=== PATIENT | male | born 1955 | race Caucasian/White ===

== ENCOUNTER 2018-03-15 10:44 | Inpatient (IN) ==
--- NOTE | 2018-03-15 09:37 | Discharge Summary ---
Orders not resulted at time of discharge: Pending orders 03/15/18 08:18 XR hip complete LT [XR] Routine H/H [Hemoglobin and Hematocrit] [HEME] Routine 03/16/18 04:00 PT/INR [Prothrombin Time INR] [COAG] AM 0400 03/17/18 04:00 PT/INR [Prothrombin Time INR] [COAG] AM 0400 03/18/18 04:00 PT/INR [Prothrombin Time INR] [COAG] AM 0400 03/19/18 04:00 PT/INR [Prothrombin Time INR] [COAG] AM 0400 Date of Encounter: 03/18/18 Time of Encounter: 16:29 - Discharge Diagnosis (1) Status post total hip replacement, left Priority: Primary Status: Acute Comments: Opsite dressing, leave intact until first post-operative visit. If dressing becomes >50% saturated, contact office, remove dressing and place appropriate dressing in its place. Do not allow for dressing to get wet. Zipline/[place] in place, plan to remove at post-operative day #14-16. Total Joint Precautions x 6 weeks Apply cold therapy wrap 3-6x/day for 20 minutes at a time. Encourage ambulation throughout the day Use Incentive spirometer 10x/hour. Elevate affected extremity above heart as tolerated. Brace: Wear hip abductor brace at night x 6 weeks. (2) Arthritis of left hip Priority: Primary Status: Acute (3) Atrial fibrillation Priority: Secondary Status: Chronic Qualifiers: Atrial fibrillation type: chronic Qualified Code(s): I48.2 - Chronic atrial fibrillation (4) Chronic anticoagulation Priority: Secondary Status: Chronic Comments: On Coumadin chronically Lovenox/Coumadin bridge pre-operatively Lovenox/Coumadin bridge post-operatively, daily PT/INR until therapeutic 2-3. (5) COPD (chronic obstructive pulmonary disease) Priority: Secondary Status: Chronic Qualifiers: COPD type: chronic bronchitis Chronic bronchitis type: unspecified Qualified Code(s): J42 - Unspecified chronic bronchitis (6) Tobacco use Priority: Secondary Status: Chronic (7) NICM (nonischemic cardiomyopathy) Priority: Secondary Status: Chronic (8) ICD (implantable cardioverter-defibrillator) in place Priority: Secondary Status: Chronic (9) Sarcoidosis Priority: Secondary Status: Chronic - Hospital Course Hospital course: Mr. Boo is a 63 year old male, POD#3 - Left THR 03/16. Patient seen at bedside, without complaints. A&O x 3 03/16 - Cardio consulted for close follow up. No further recommendation. Afebrile, vital signs stable. Vital Signs Temp Pulse Resp BP Pulse Ox 03/18/18 10:11 98.1 F 93 16 104/56 96 03/18/18 10:10 87 96/65 96 03/18/18 07:54 95 03/18/18 06:29 98.5 F 84 16 98/67 93 03/18/18 04:14 98.6 F 91 14 93/64 92 03/17/18 23:37 98.8 F 56 15 104/67 92 03/17/18 19:47 16 92 03/17/18 19:06 99.5 F 100 14 100/66 92 Intake and Output 03/18/18 03/18/18 03/18/18 07:59 15:59 23:59 Intake Total 800 / 800 Output Total 275 / 275 650 / 650 Balance -275 / -275 150 / 150 Intake: Oral 800 / 800 Output: Urine 275 / 275 650 / 650 Other: Weight 58.5 kg Patient Weight 03/18/18 23:59 Weight 58.5 kg Labs reviewed. H/H - stable, asymptomatic Short CBC 03/18/18 Range/Units 07:09 Hgb 12.0 L (12.9-16.9) g/dL Hct 35.1 L (37.5-50.1) % BMP 03/18/18 Range/Units 07:09 Sodium 133 L (136-145) mEq/L Potassium 3.9 (3.5-5.1) mEq/L Chloride 100 (98-107) mEq/L Carbon Dioxide 26 (23-29) mEq/L BUN 11 (8-23) mg/dL Creatinine 0.55 L (0.70-1.30) mg/dL Glucose 92 (70-105) mg/dL Calcium 8.4 L (8.6-10.3) mg/dL PT/INR - order waiting* Pain control: adequate Participating in PT. All questions and concerns addressed. Educated on use of incentive spirometer. Encouraged ambulation and proper hydration. Patient educated on post-operative restrictions and post-operative care. Assessment and plan: Continue with postoperative care Discharge plan: ECF, today OK to start Coumadin* Daily PT/INR until therapeutic - Time Spent with Patient Total time spent providing and/or coordinating discharge services: - Discharge Medications Home Medications: Albuterol Sulfate [Albuterol Inhaler] 2 puff IH Q6H PRN 03/23/17 [History] Budesonide/Formoterol 160/4.5 [Symbicort 160/4.5] 2 puff IH BIDR 03/23/17 [History] Furosemide [Lasix] 40 mg PO DAILY 03/23/17 [History] Metoprolol Succinate 100 mg PO DAILY 03/23/17 [History] Warfarin [Coumadin] 2.5 mg PO SUTUWETHFRSA 03/23/17 [History] Docusate [Colace] 100 mg PO BID 10 Days #20 capsule 03/15/18 [Rx] Enoxaparin [Lovenox] 40 mg SQ Q12HR 7 Days #14 syr 03/15/18 [Rx] Ipratropium/Albuterol Neb [Duoneb] 3 ml IH Q6HR PRN 03/15/18 [History] Omeprazole [PriLOSEC] 20 mg PO DAILY 03/15/18 [History] OxyCODONE Immed Rel [Roxicodone 5 MG] 5 mg PO Q6HR PRN 7 Days #28 tablet 03/15/18 [Rx] Polyethylene Glycol 3350 [MiraLAX] 17 gm PO DAILY PRN 03/15/18 [History] Tiotropium [place] [Spiriva Respimat] 2 puff IH DAILY 03/15/18 [History] Ascorbic Acid [Vitamin C] 500 mg PO BIDWM tablet 03/18/18 [Rx] Ferrous Sulfate 325 mg PO BIDWM tablet 03/18/18 [Rx] Allergies/Adverse Reactions: Allergy/AdvReac Type Severity Reaction Status Date / Time No Known Allergies Allergy Verified 03/15/18 12:05 Date of admission: 03/15/18 Primary care physician: Caroline Klein Anticipated date of discharge: 03/18/18 - Patient Status Disposition: Transfer SNF Condition: Good Functional capacity at discharge: uses cane/walker Overall status at discharge: patient is progressing back to baseline - Discharge Instructions Follow Up With: Dolores Sawant, PAC [Physician Test And Turn Up Technician] - 03/25/18 10:15 Caroline Zamora, RN ONCOLOGY RESEARCH [Primary Care Provider] - Additional Instructions: Discharge Instructions: Total Hip Replacement Please call [facility] ([phone]), your Primary Care Physician, or report to the Emergency Room if you have any of the following symptoms: Nausea, vomiting, fever greater that 101.5, swelling, chest pain, shortness of breath, increased pain/redness/drainage/odor for your incision site, numbness/tingling, or any other concerning symptoms. ACTIVITY:Weight-bearing as tolerated for 8 weeks with hip dislocation precautions that physical therapy taught you. You may progress as tolerated under the guidance of your physical therapist. You do not need to sleep with a pillow between your legs. You can also seep on the operative side or on your stomach. Incentive Spirometer 10 times an hour. MEDICATIONS: Upon discharge resume your home medications. Take all the medications as prescribed. Take a stool softener if taking narcotic pain m edications. Stool softeners are only effective if you drink enough fluids. Drink 6-8 glass of water or fluids a day, unless this is not allowed for another health problem. Despite using stool softeners, if you haven't had a bowel movement in 3 days, please switch to a gentle laxative. Gentle laxatives are sold over the counter. You should have a bowel movement within 24 hours, if not call the office. You will be discharged from the hospital with a prescription for pain medication. You are encouraged to decrease the use of narcotic pain medication as tolerated. Should you require a refill, please call the office. [facility] prescribes narcotic pain medication for only 4-6 weeks after surgery. If you require pain medication beyond this time period, you may be referred to your Primary Care Physician or to the Pain Clinic for further evaluation. Plan ahead for refills on pain medication as many narcotics either need to be picked up at the office or mailed. It is best to call 48-72 hours in advance of needing a prescription refill so you don't run out of medication. To help control the post-operative pain, you may take NSAIDs (Aleve,Advil, Motrin, ibuprofen, naprosyn) or Tylenol as prescribed on the bottle in addition to the pain medication. ANTICOAGULATION (blood thinners): Continue your Aspirin, Lovenox or Coumadin as prescribed to help prevent a blood clot in the leg or in the lungs. As long as your incision remains dry and you tolerate the NSAIDs (Aleve, Advil, Motrin, Ibuprofen, Naprosyn), it is OK to use the NSAIDS while you are taking your anticoagulation medication. Should your incision start to drain, stop the NSAID and contact our office. Common symptoms of blood clot in the legs include: localized pain, swelling, calf tenderness, redness or discoloration of the skin. Blood clot in the lung symptoms include: shortness of breath, rapid pulse, sweating, and chest pain that worsens with deep breathing, coughing up blood, lightheadedness, feelings of anxiety. If you experience any of these symptoms notify your physician immediately, go to the emergency room, or if having trouble breathing, call 911. WOUND CARE: Leave the dressing on for 7 to 10days. You may change the dressing if it is saturated greater than 50%. Do not get the dressing wet at anytime. Wash your hands with antibacterial soap, rinse and dry prior to any wound care. If you have bryon the visiting nurse or rehab facility can remove the stapes 10-14 days after surgery and place steri-strips across the wound. Leave the steri-strips in place until they fall off on their own. You may let water from the shower run on top of the steri-strips. If you do not have a visiting nurse or rehab facility, you will need to return to the office at 10-14 days for the bryon to be removed. If you have itching or redness around the dressing call the office. FOLLOW-UP: Please follow up with your surgeon in the orthopedic clinic in 6 weeks from the day of surgery. If you have bryon that need to be removed, you will need to come back to the office in 10-14 days from the day of surgery.
[2018-03-15] MEDS ORDERED: Famotidine 20 MG/2 ML VIAL IVP ONE (11:08)
[2018-03-15] MEDS ORDERED: Acetaminophen IV 1,000 MG/100 ML INFUS..BTL IVPB ONE (11:08)
[2018-03-15] MEDS ORDERED: Pregabalin 75 MG CAPSULE PO ONE (11:08)
[2018-03-15] MEDS ORDERED: Ringers Solution, Lactated 1,000 ML IVC SCH ×2 (11:15→17:37)
[2018-03-15] MEDS ORDERED: *HR* Promethazine 25 MG/ML VIAL IVP PRN (11:21)
[2018-03-15] MEDS ORDERED: *HR* OxyCODONE Immed Rel 5 MG TABLET PO PRN (11:21)
[2018-03-15] MEDS ORDERED: *HR* Labetalol 20 MG/4 ML SYRINGE IVP PRN (11:21)
[2018-03-15] MEDS ORDERED: Albuterol 2.5 MG/3 ML NEBULIZER IH ONE (11:23)
[2018-03-15] MEDS ORDERED: CeFAZolin Syr 2,000MG/20 ML 2,000 MG/20 ML SYRINGE IVPB ONE (11:23)
--- NOTE | 2018-03-15 11:42 | History & Physical Report ---
Date of Encounter: 03/15/18 Time of Encounter: 11:41 24 Hour HP Update - Instructions Instructions: If the History and Physical is less than 30 days old and was completed prior to A.M. admission and or procedure and has NOT been updated on calendar day of procedure please complete this update prior to performing procedure. - Update Patient reports changes in Medical Condition: No Changes in examination, assessment, or condition: No Changes in Medication: No Preop tests/diagnostics Reviewed: Yes Surgery Remains Indicated: Yes Consent for Planned Operative Procedure(s) Verified: Yes - Pre-Operative Checklist Preoperative Checklist Indicated: No Prophylactic Antibiotic Ordered: Yes Is VTE Prophylaxis Indicated?: Yes
[2018-03-15] MEDS ORDERED: *HR* Propofol 200 MG/20 ML VIAL IVP ONE (13:28)
[2018-03-15] MEDS ORDERED: *HR* FentaNYL (PF) 100 MCG/2 ML VIAL ONE (13:28)
[2018-03-15] MEDS ORDERED: *HR* Midazolam HCl 2 MG/2 ML VIAL ONE (13:28)
--- NOTE | 2018-03-15 13:28 | Anesthesia Evaluation PreOp ---
Date of Encounter: 03/15/18 Time of Encounter: 13:25 - Past History Planned Operation: Left THR Cardiac History: Arrhythmia (AFib), Pacemaker/ICD (AICD EF 40%), Other (Non Ischemic Cardiomyopathy) Pulmonary History: Smoker, COPD, Other (Sarcoid) HEAD OF HISTORY History: Denies Any Significant HX Other Medical History: Denies Any Significant HX Anesthesia History: No Prior Anesthetic Complications Alcohol Use: none Drug use: none Medications and Allergies Albuterol Sulfate [Albuterol Inhaler] 2 puff IH Q6H PRN 03/23/17 [History] Budesonide/Formoterol 160/4.5 [Symbicort 160/4.5] 2 puff IH BIDR 03/23/17 [History] Furosemide [Lasix] 40 mg PO DAILY 03/23/17 [History] Metoprolol Succinate 100 mg PO DAILY 03/23/17 [History] Warfarin [Coumadin] 2.5 mg PO SUTUWETHFRSA 03/23/17 [History] Docusate [Colace] 100 mg PO BID 10 Days #20 capsule 03/15/18 [Rx] Enoxaparin [Lovenox] 40 mg SQ Q12HR 03/15/18 [History] Enoxaparin [Lovenox] 40 mg SQ Q12HR 7 Days #14 syr 03/15/18 [Rx] Ipratropium/Albuterol Neb [Duoneb] 3 ml IH Q6HR PRN 03/15/18 [History] Omeprazole [PriLOSEC] 20 mg PO DAILY 03/15/18 [History] OxyCODONE Immed Rel [Roxicodone 5 MG] 5 mg PO Q6HR PRN 7 Days #28 tablet 03/15/18 [Rx] Polyethylene Glycol 3350 [MiraLAX] 17 gm PO DAILY PRN 03/15/18 [History] Tiotropium [place] [Spiriva Respimat] 2 puff IH DAILY 03/15/18 [History] Allergy/AdvReac Type Severity Reaction Status Date / Time No Known Allergies Allergy Verified 03/15/18 12:05 - Meds/Allergy Pre-op Review Medications Reviewed: Yes Allergies Reviewed: Yes Beta Blockers on Current Med List: Yes (Metoprolol today 0730) Anesthesia Results - Labs Laboratory Tests 03/11/18 03/11/18 03/11/18 11:12 11:12 11:12 Hgb 15.9 Hct 46.4 Plt Count 134 L PT 23.1 H INR 2.0 APTT 39.0 H Sodium 137 Potassium 4.0 BUN 13 Creatinine 0.79 - Imaging EKG: report reviewed (SB) Additional studies: 2016 EF 45%, no pulm htn Anesthesia Exam O2 Sat Height 1.8 m Height 1.8 m Height 1.8 m Weight 54.885 kg Weight 54.885 kg Weight 54.885 kg O2 Sat by Pulse Oximetry 99 O2 Sat by Pulse Oximetry 99 Vital Signs Temp Pulse Resp BP Pulse Ox 97.6 F 60 18 106/70 99 03/15/18 11:15 03/15/18 11:15 03/15/18 11:15 03/15/18 11:15 03/15/18 11:15 Height: 5'11 Weight: 121 lbs NPO (# of Hours): 0800 today had cookies, coffee Pain Scale: 0 - HEENT Pupil (Motor): Pupils equal, EOMI Mallampati: II Teeth: Missing, Poor dentition Oral Opening: Greater than 3 - HEAD OF HISTORY LOC: Oriented HEAD OF HISTORY Motor: Normal RUE, Normal LUE, Normal RLE, Normal LLE, Normal Face HEAD OF HISTORY Sensory: Normal: RUE, LUE, RLE, LLE, Face - Cardiac Rhythm: Regular Murmur: None JVD: No Carotid Bruit: No - Pulmonary Breath Sounds: bilateral Clear Respiratory Effort: Symmetrical Anesthesia Assess/Plan ASA Score: 4 (HTN COPD Cardiomyopathy AICD) Level of consciousness: Cooperative, Oriented Anesthetic Plan: General Autologous Blood: No Monitoring Plan: Standard Monitors Recovery Plan: PACU (Discussed GA, agrees to proceed)
[2018-03-15] MEDS ORDERED: Dexamethasone 4 MG/ML VIAL ONE ×2 (13:36→15:26)
[2018-03-15] MEDS ORDERED: Lidocaine -MPF 4% 5 ML AMPUL ONE (13:36)
[2018-03-15] MEDS ORDERED: *HR* Succinylcholine 200 MG/10 ML VIAL IVP ONE (13:36)
[2018-03-15] MEDS ORDERED: Lidocaine -MPF 2% 2 ML VIAL ONE (13:36)
[2018-03-15] MEDS ORDERED: Ondansetron 4 MG/2 ML VIAL ONE (13:36)
[2018-03-15] MEDS ORDERED: Ethanol\\Acetic Acid\\Na Ace\\Ben 1,000 ML IRRIG.SOLN IR ONE (14:04)
[2018-03-15] MEDS ORDERED: *HR* Rocuronium Bromide 50 MG/5 ML VIAL ONE (14:14)
[2018-03-15] MEDS ORDERED: EPHEDrine 50 MG/ML VIAL ONE (15:09)
[2018-03-15] MEDS ORDERED: Tranexamic Acid 1,000 MG/10 ML VIAL ONE (15:21)
--- NOTE | 2018-03-15 16:02 | Orthopedic Operative Note ---
Date of procedure: 03/15/18 Pre-op diagnosis: Left hip arthritis Post-op diagnosis: same Procedure: Procedure: Left Total Hip Replacment robotic-assisted Estimated blood loss: 200 cc Hardware: Metal and polyethylene replacement. John DM Cup: 56 cup Femoral size 11 stem Head: 0 head with Roxy Procedural Notes: Grade 4 arthritic changes femoral head acetabular socket, procedure performed with robotic assistance. Operative leg 5 mm shorter than nonoperative leg is measured by preoperative CT scan Operative procedure: The patient was brought to the operating room and placed on the operating room table. After general anesthesia was administered the patient was placed in the lateral decubitus position with the operative leg up. All pressure points were padded appropriately and the head was stabilized in the neutral position. The operative extremity was prepped and draped in the sterile surgical fashion patient received IV antibiotic prior to skin incision. 3 Steinmann pins were placed in the iliac crest 3 cm proximal to the anterior superior iliac spine this was for the robotic-assisted sensor. This was done through a small 2 cm incision. A standard posterior approach is made to the operative hip, the incision was made through the skin and subcutaneous tissue hemostasis was obtained with Bovie cautery. Using careful sharp dissection the fascia was identified and incised exposing the external rotators. The greater trochanter was marked, and length was measured at this time utilizing robotic assistance. The external rotators were released off the greater trochanter and tagged with #2 FiberWire suture. The capsule was T'd open and the hip was brought into internal rotation. Patient noted to have grade 4 arthritic changes femoral head. The femoral neck cut was made at the appropriate level roughly 15 mm proximal to the lesser trochanter aced on preoperative templating. An anterior capsulotomy was performed for the anterior retractor. Soft tissues removed from the acetabulum. Patient noted to have grade 4 arthritic changes acetabulum. The acetabulum reference point was confirmed. The acetabulum was then mapped with robotic assistance. Based on the preoperative plan the acetabulum was reamed in one step with a 55 reamer. The 56 acetabulum was impacted with robotic assistance and 37 degrees of abduction and 21 degrees of anteversion. The hip was brought back in to internal rotation and prepared with the box worker followed by the canal finder followed by the reaming process to a size 11/12 broaching process in 20 degrees anteversion. It was broached up to the appropriate size 11 Trial reduction revealed leg lengths close to normal. The femoral implant was impacted in place in 20 degrees of anteversion. Trial reduction found the hip to be stable with 0 head and Roxy. The trials were removed and the real implants were impacted in place. The hip was reduced, patient had robotic confirmed leg length of 9 mm longer than the contralateral side. The hip had excellent stability with forward flexion to 90 degrees adduction of 30 degrees and internal rotation of 60 degrees. The hip had no shuck. The hip sat with an antibacterial solution. It was irrigated out with 2 L of pulse irrigation. The Steinmann pins were removed. The hip was closed by the PA. The deep tissue was irrigated and closed deep with #1 PDS suture superficially with 0 PDS suture and skin was closed with Dermabond and zip tie. The patient was placed in a sterile dressing and abduction pillow. The patient was extubated and transferred to the recovery room in stable condition. Anesthesia: KATHYA Surgeon: Ramon Orozco Was there an elementary assistant teacher present: No Estimated blood loss (cc): 200 Condition: stable Disposition: PACU
[2018-03-15] MEDS ORDERED: *HR* HYDROmorphone (PF) 1 MG/ML SYRINGE ONE (16:19)
[2018-03-15] MEDS: *HR* HYDROmorphone (PF) 1 MG/ML SYRINGE IVP PRN ×4 (16:43→17:03)
[2018-03-15 17:17] LABS: Hemoglobin 12.8 g/dL (12.9-16.9)
[2018-03-15] MEDS ORDERED: Ondansetron 4 MG/2 ML VIAL IVP PRN (17:37)
[2018-03-15] MEDS ORDERED: traMADol 50 MG TABLET PO PRN (17:37)
[2018-03-15] MEDS ORDERED: Naloxone 0.4 MG/ML INJ IVP PRN (17:37)
[2018-03-15] MEDS ORDERED: Temazepam 15 MG CAPSULE PO PRN (17:37)
[2018-03-15] MEDS ORDERED: Ipratropium/Albuterol Neb 3 ML IH PRN (17:37)
[2018-03-15] MEDS ORDERED: MOM Conc 10 ML UD.LIQ PO PRN (17:37)
[2018-03-15] MEDS ORDERED: Sennosides 8.6 MG TABLET PO PRN (17:37)
[2018-03-15] MEDS ORDERED: *HR* Enoxaparin 30 MG/0.3 ML SYRINGE SQ SCH (18:00)
--- NOTE | 2018-03-15 18:10 | Anesthesia Evaluation Post Op ---
Date of Encounter: 03/15/18 Time of Encounter: 18:00 - Vital Signs Vital Signs: Vital Signs/O2 Sat/Glucose, Most Current Temp Pulse Resp BP Pulse Ox 03/15/18 17:40 98.0 F 73 12 104/71 99 03/15/18 17:04 98.7 F 78 18 131/75 96 03/15/18 16:54 73 12 138/83 98 03/15/18 16:44 84 16 136/82 98 03/15/18 16:34 99.2 F 82 16 131/94 99 - Lungs Lungs: Clear Ascult./Percussion - Airway Airway: Non-obstructed - Cardiovascular Regular Rate - Mental Status Mental Status: Alert & Oriented, Answers Appropriately - Pain Pain Scale: 0 - Nausea Vomiting Nausea Vomiting: Not Present - Hydration Hydration: Ice chips - Discharge PostOp Status: Transfer Patient to floor
[2018-03-15] MEDS: *HR* Enoxaparin 30 MG/0.3 ML SYRINGE SQ SCH (18:22)
[2018-03-15] MEDS: Ascorbic Acid 500 MG TABLET PO SCH (18:22)
[2018-03-15 18:36] LABS: INR 1.1; Prothrombin Time 11.9 Seconds (9.4-12.1)
[2018-03-15] MEDS ORDERED: *HR* Warfarin 2.5 MG TABLET PO ONE (19:07)
[2018-03-15] MEDS: Budesonide/Formoterol 160/4.5 1 PUFF INH IH SCH (19:55)
[2018-03-15] MEDS: *HR* OxyCODONE/APAP 5/325 TABLET PO PRN (23:56)
[2018-03-16] MEDS: *HR* OxyCODONE/APAP 5/325 TABLET PO PRN (04:51)
--- NOTE | 2018-03-16 06:17 | Orthopedics Progress Note ---
Date of Encounter: 03/16/18 Time of Encounter: 06:16 Subjective Interval history: Patient was seen this morning doing well without complaints. Afebrile vital signs stable. Operative extremity: Neurovascularly intact Dressing clean dry and intact Calves nontender Assessment and plan: Continue with postoperative care Hematocrit 38 Objective Vital signs: Vital Signs Temp Pulse Resp BP Pulse Ox 03/16/18 05:14 97.5 F L 72 14 101/66 99 03/16/18 05:06 16 101/64 97 03/16/18 00:40 101/64 03/15/18 23:56 97.4 F L 68 16 105/58 97 03/15/18 21:11 97.7 F 100 14 113/76 99 03/15/18 20:19 97.6 F 82 16 114/83 97 03/15/18 19:56 16 97 03/15/18 19:24 97.4 F L 64 14 116/67 96 03/15/18 19:13 98.0 F 61 16 121/75 94 03/15/18 18:30 97.5 F L 64 16 141/77 96 03/15/18 18:16 16 98 03/15/18 17:40 98.0 F 73 12 104/71 99 03/15/18 17:04 98.7 F 78 18 131/75 96 03/15/18 16:54 73 12 138/83 98 03/15/18 16:44 84 16 136/82 98 03/15/18 16:34 99.2 F 82 16 131/94 99 03/15/18 11:50 18 106/70 99 03/15/18 11:15 97.6 F 60 18 106/70 99 Intake and Output 03/15/18 03/15/18 03/16/18 15:59 23:59 07:59 Intake Total 250 / 250 100 / 100 Output Total 100 / 100 425 / 425 Balance 150 / 150 -325 / -325 Intake: IV Fluids 100 / 100 Ancef 2,000 MG In 0.9 % Sodium 100 / 100 Chloride 100 ML @ 200 mls/hr IVPB Q8H [facility] Rx#:[id number] Oral 250 / 250 0 / 0 Output: Urine 0 / 0 425 / 425 Estimated Blood Loss 100 / 100 Other: # Voids 1 Weight 54.885 kg 56.36 kg Patient Weight 03/16/18 23:59 Weight 56.36 kg - Labs CBC & BMP: 03/15/18 16:57 Labs: Abnormal lab results Hgb 12.8 g/dL (12.9-16.9) L D 03/15/18 16:57 Consult Discharge Plan - Plan Referrals: Caroline Klein, MODE [Primary Care Provider] -
[2018-03-16] MEDS: *HR* Enoxaparin 30 MG/0.3 ML SYRINGE SQ SCH ×2 (06:23→17:16)
[2018-03-16 07:42] LABS: Prothrombin Time 10.9 Seconds (9.4-12.1)
[2018-03-16 07:43] LABS: Hematocrit 36.8 % (37.5-50.1); Hemoglobin 12.5 g/dL (12.9-16.9)
--- NOTE | 2018-03-16 07:48 | Event Note ---
Date of Encounter: 03/16/18 Time of Encounter: 07:46 PCR - POD#1 - Left THR 03/16. Patient seen at bedside, without complaints. A&O x 3 03/16 - Cardio consulted for close follow up. Afebrile, vital signs stable. Labs reviewed. H/H - stable, asymptomatic Pain control: adequate Participating in PT. All questions and concerns addressed. Educated on use of incentive spirometer. Encouraged ambulation and proper hydration. Patient educated on post-operative restrictions and post-operative care. Assessment and plan: Continue with postoperative care Discharge plan: ECF, once stable from cardiac standpoint. OK to start Coumadin* Short CBC 03/16/18 03/15/18 Range/Units 06:35 16:57 Hgb 12.5 L 12.8 L D (12.9-16.9) g/dL Hct 36.8 L 38.0 (37.5-50.1) % BMP 03/16/18 Range/Units 06:35 Sodium 139 (136-145) mEq/L Potassium 4.2 (3.5-5.1) mEq/L Chloride 105 (98-107) mEq/L Carbon Dioxide 26 (23-29) mEq/L BUN 13 (8-23) mg/dL Creatinine 0.56 L (0.70-1.30) mg/dL Glucose 129 H (70-105) mg/dL Calcium 8.4 L (8.6-10.3) mg/dL Vital Signs Temp Pulse Resp BP Pulse Ox 03/16/18 09:55 98.1 F 83 16 107/64 96 03/16/18 06:29 97.8 F 76 16 104/68 98 03/16/18 05:14 97.5 F L 72 14 101/66 99 03/16/18 05:06 16 101/64 97 03/16/18 00:40 101/64 03/15/18 23:56 97.4 F L 68 16 105/58 97 03/15/18 21:11 97.7 F 100 14 113/76 99 03/15/18 20:19 97.6 F 82 16 114/83 97 03/15/18 19:56 16 97 03/15/18 19:24 97.4 F L 64 14 116/67 96 03/15/18 19:13 98.0 F 61 16 121/75 94 03/15/18 18:30 97.5 F L 64 16 141/77 96 03/15/18 18:16 16 98 03/15/18 17:40 98.0 F 73 12 104/71 99 03/15/18 17:04 98.7 F 78 18 131/75 96 03/15/18 16:54 73 12 138/83 98 03/15/18 16:44 84 16 136/82 98 03/15/18 16:34 99.2 F 82 16 131/94 99 Intake and Output 03/15/18 03/16/18 03/16/18 23:59 07:59 15:59 Intake Total 250 / 250 100 / 100 Output Total 100 / 100 425 / 425 Balance 150 / 150 -325 / -325 Intake: IV Fluids 100 / 100 Ancef 2,000 MG In 0.9 % Sodium 100 / 100 Chloride 100 ML @ 200 mls/hr IVPB Q8H [facility] Rx#:[id number] Oral 250 / 250 0 / 0 Output: Urine 0 / 0 425 / 425 Estimated Blood Loss 100 / 100 Other: # Voids 1 Weight 56.36 kg Patient Weight 03/16/18 23:59 Weight 56.36 kg
[2018-03-16] MEDS: TIOTROPIUM BROMIDE IH SCH (08:04)
[2018-03-16] MEDS: Budesonide/Formoterol 160/4.5 1 PUFF INH IH SCH ×2 (08:04→20:18)
[2018-03-16 09:25] LABS: BUN/Creatinine Ratio 23 (6-26); Blood Urea Nitrogen 13 mg/dL (8-23); Calcium 8.4 mg/dL (8.6-10.3); Carbon Dioxide 26 mEq/L (23-29); Chloride 105 mEq/L (98-107); Glucose 129 mg/dL (70-105); Osmolality,Calculated 290 (280-300); Potassium 4.2 mEq/L (3.5-5.1); Sodium 139 mEq/L (136-145); eGFR For Non-African Americans > 60 (> 60)
[2018-03-16] MEDS: Multivit/Ca/Min/Fe/FA 1 TAB TABLET PO SCH (10:14)
[2018-03-16] MEDS: Furosemide 40 MG TABLET PO SCH (10:14)
[2018-03-16] MEDS: Ascorbic Acid 500 MG TABLET PO SCH ×2 (10:14→17:15)
[2018-03-16] MEDS: Metoprolol XL (24 HR) Succ 50 MG TAB.ER.24H PO SCH (10:14)
--- NOTE | 2018-03-16 11:43 | Cardiology Consult Note ---
<Adelfo Davison - Last Filed: 03/17/18 08:15> Date of Encounter: 03/17/18 Time of Encounter: 10:30 Assessment and Plan (1) NSVT (nonsustained ventricular tachycardia) Current Visit: Yes Status: Acute Slow Vt seen. HR 90. Pt has ICD for NICMP. WIll repeat TTE and check Mg. K is 4.2. (2) Atrial fibrillation Current Visit: No Status: Chronic H/o PAF. Currently NSR. Small runs PAF seen at times on telemetry. Overall he is rate controlled. Reported to have NSVT by RN on floor. Telemetry reviewed with Dr. Gamboa. Possible slow VT seen. Continue bb. On coumadin therapy and currently bridged by coumadin clinic. Will have pharmacy to dose coumadin therapy if ok to start from orthopaedic standpoint. Qualifiers: Atrial fibrillation type: chronic Qualified Code(s): I48.2 - Chronic atrial fibrillation (3) NICM (nonischemic cardiomyopathy) Current Visit: No Status: Chronic H/o NICM s/p PPM. States LHC at OSH 5 years was normal. TTE 2017 showed EF LVEF 45-50%. He is currently euvolemic. Continue bb. Continue maintenance lasix. Low sodium diet. (4) ICD (implantable cardioverter-defibrillator) in place Current Visit: No Status: Chronic Discussion w patient/family: The assessment and plan as outlined above was discussed with the patient and/or family members who expressed understanding and agreement. All questions were answered. Thank you for involving us in the care of your patient. Please call with any questions. History of Present Illness Consult date: 03/16/18 Requesting physician: Dolores Sawant Consult reason: Post op management, afib, ICD, on coumadin Chief complaint: Knee pain. History of present illness: Mr. Boo is a 63 year old male with past medical history of NICMP, ICD, and atrial fibrillation on coumadin. Pt presented for elective robotic hip replacement with Dr. Orozco. There was no complication from his procedure. Cardiology consulted for post-op management. He is followed by the [facility] anticoagulation clinic for his coumadin. He is currently NSR with intermittent periods of rate controlled afib. He denies SOB, orthopnea, PND, or edema. C/o chest congestion and occasional palpitations. Last night he was reported to have NSVT on telemetry.He states that he was shocked 6 times in the past by his defibrillator but no recent shocks. His last device check in [facility] showed no events. Prior cardiac testing: ICD interrogation 11/2017-Remote monitoring of the device shows that all measurements are appropriate. NO events. Patient is scheduled for follow up in 3 months, 02/21. Battery Longevity 8.11 Years. TTE 02/04/17- LVEF 45-50%. Low normal to mildly reduced LV systolic function. Not all wall segments were well visualized. Normal right ventricular structure and function. Elongated and mildly prolapsing anterior mitral valve leaflet associated with trace mitral regurgitation. No pulmonary hypertension. Past Med Surg Social Fam HX - Past Medical History Medical history: atrial fibrillation, cardiomyopathy, CHF, COPD, coronary artery disease, GERD Additional medical history: emphyzema, sarcoidosis, Psychiatric history: no psych history - Past Surgical History Surgical History: orthopedic, other, pacemaker/AICD, sinus surgery Additional surgical history: left heart cath, NEREYDA thrombus, lung bxs, - Social History Smoking Status: Current every day smoker Packs per day: 1-1.5 Smokeless Tobacco Status: No Alcohol use: none Drug use: none - Family History Mother Hx Family Cardiac Disorders: Yes Medications and Allergies Albuterol Sulfate [Albuterol Inhaler] 2 puff IH Q6H PRN 03/23/17 [History] Budesonide/Formoterol 160/4.5 [Symbicort 160/4.5] 2 puff IH BIDR 03/23/17 [History] Furosemide [Lasix] 40 mg PO DAILY 03/23/17 [History] RX: Metoprolol Succinate 100 mg PO DAILY 03/23/17 [History] Warfarin [Coumadin] 2.5 mg PO SUTUWETHFRSA 03/23/17 [History] Docusate [Colace] 100 mg PO BID 10 Days #20 capsule 03/15/18 [Rx] Enoxaparin [Lovenox] 40 mg SQ Q12HR 03/15/18 [History] Enoxaparin [Lovenox] 40 mg SQ Q12HR 7 Days #14 syr 03/15/18 [Rx] Ipratropium/Albuterol Neb [Duoneb] 3 ml IH Q6HR PRN 03/15/18 [History] Omeprazole [PriLOSEC] 20 mg PO DAILY 03/15/18 [History] RX: OxyCODONE Immed Rel [Roxicodone 5 MG] 5 mg PO Q6HR PRN 7 Days #28 tablet 03/15/18 [Rx] RX: Polyethylene Glycol 3350 [MiraLAX] 17 gm PO DAILY PRN 03/15/18 [History] Tiotropium [place] [Spiriva Respimat] 2 puff IH DAILY 03/15/18 [History] Allergy/AdvReac Type Severity Reaction Status Date / Time No Known Allergies Allergy Verified 03/15/18 12:05 All Systems Review: The remainder of the systems were reviewed and are negative Physical Examination Vital Signs, Last 4 Hours Temp Pulse Resp BP Pulse Ox 03/16/18 09:55 98.1 F 83 16 107/64 96 General: Conversant, No Apparent Distress HEENT: Atraumatic, Normocephaly, Mucus Membranes Moist Neck: No JVD, Normal carotid pulses Cardiac: Reg Rate and Rhythm, Normal S1 and S2, No Murmur, Other (Device KAYLIE) Lungs: Normal Breath Sounds, No Wheeze, Rales, Rhonchi Neuro: Alert and responsive, No focal deficits noted Abdomen: Soft, Non-Tender Skin: No rashes noted on visualized skin Musculoskeletal: No Chest Wall Tenderness Extremities: No Clubbing, No Cyanosis, No Edema, Normal Pulses Results 03/17/18 06:05 03/17/18 06:05 Lab Results 03/15/18 03/15/18 03/16/18 16:57 18:17 06:35 Hgb 12.8 L D 12.5 L Hct 38.0 36.8 L INR 1.1 Sodium Potassium Chloride Carbon Dioxide BUN Creatinine Glucose Calcium 03/16/18 03/16/18 06:35 06:36 Hgb Hct INR 1.0 Sodium 139 Potassium 4.2 Chloride 105 Carbon Dioxide 26 BUN 13 Creatinine 0.56 L Glucose 129 H Calcium 8.4 L - Imaging and Cardiology Echo: report reviewed - EKG Interpretation EKG results cardiology: personally reviewed Consult Discharge Plan - Plan Referrals: Caroline Klein CNP [Primary Care Provider] - <Macey Gamboa - Last Filed: 03/17/18 19:03> Date of Encounter: 03/17/18 - Attending Attestation I examined this patient and my medical decision-making was reviewed with the IMAGING TECH. I agree with the documented findings, disposition and treatment plan as described. Assessment and Plan Discussion w patient/family: The assessment and plan as outlined above was discussed with the patient and/or family members who expressed understanding and agreement. All questions were answered. Thank you for involving us in the care of your patient. Please call with any questions. History of Present Illness History of present illness: Mr. Boo is a 63 year old male All Systems Review: The remainder of the systems were reviewed and are negative Physical Examination Vital Signs, Last 4 Hours Temp Pulse Resp BP Pulse Ox 03/17/18 15:49 98.6 F 99 16 102/64 96 Results 03/17/18 06:05 03/17/18 06:05 Lab Results 03/17/18 03/17/18 03/17/18 06:05 06:05 06:05 Hgb 11.2 L Hct 32.6 L INR 1.3 Sodium 138 Potassium 4.1 Chloride 105 Carbon Dioxide 29 BUN 13 Creatinine 0.70 Glucose 102 Calcium 8.5 L
--- NOTE | 2018-03-16 12:45 | Physician Discharge Referral ---
ExtendedCare Referral Info Transfer To: ON LICENSE OF [facility] Provider in Charge: Provider in Charge after Transfer: PCP Institutional Level of Care: Skilled - Diagnosis (1) Status post total hip replacement, left Priority: Primary Status: Acute (2) Arthritis of left hip Priority: Primary Status: Acute (3) Atrial fibrillation Priority: Secondary Status: Chronic (4) Chronic anticoagulation Priority: Secondary Status: Chronic (5) COPD (chronic obstructive pulmonary disease) Priority: Secondary Status: Chronic (6) Tobacco use Priority: Secondary Status: Chronic (7) NICM (nonischemic cardiomyopathy) Priority: Secondary Status: Chronic (8) ICD (implantable cardioverter-defibrillator) in place Priority: Secondary Status: Chronic (9) Sarcoidosis Status: Chronic Expected Duration of Placement: < 30 days Prognosis: Good Aware of Diagnosis: Patient Aware of Prognosis: Patient - Transfer Medications Home Medications: Albuterol Sulfate [Albuterol Inhaler] 2 puff IH Q6H PRN 03/23/17 [History] Budesonide/Formoterol 160/4.5 [Symbicort 160/4.5] 2 puff IH BIDR 03/23/17 [History] Furosemide [Lasix] 40 mg PO DAILY 03/23/17 [History] Metoprolol Succinate 100 mg PO DAILY 03/23/17 [History] Warfarin [Coumadin] 2.5 mg PO SUTUWETHFRSA 03/23/17 [History] Docusate [Colace] 100 mg PO BID 10 Days #20 capsule 03/15/18 [Rx] Enoxaparin [Lovenox] 40 mg SQ Q12HR 7 Days #14 syr 03/15/18 [Rx] Ipratropium/Albuterol Neb [Duoneb] 3 ml IH Q6HR PRN 03/15/18 [History] Omeprazole [PriLOSEC] 20 mg PO DAILY 03/15/18 [History] OxyCODONE Immed Rel [Roxicodone 5 MG] 5 mg PO Q6HR PRN 7 Days #28 tablet 03/15/18 [Rx] Polyethylene Glycol 3350 [MiraLAX] 17 gm PO DAILY PRN 03/15/18 [History] Tiotropium [place] [Spiriva Respimat] 2 puff IH DAILY 03/15/18 [History] Ascorbic Acid [Vitamin C] 500 mg PO BIDWM tablet 03/18/18 [Rx] Ferrous Sulfate 325 mg PO BIDWM tablet 03/18/18 [Rx] Allergies/Adverse Reactions: Allergy/AdvReac Type Severity Reaction Status Date / Time No Known Allergies Allergy Verified 03/15/18 12:05 - Respiratory Orders None Smoking Cessation: Smoking cessation has been advised. For more information, call the [place] Tobacco Quit Line at 1-191-CTUS-NOW. - Lab Orders Lab Orders: CBC, Other (include drug levels w/frequency) (PT/INR until therapeutic with Coumadin [place]) - Advance Directives Code Status: Full Code - Mobility Orders Chair - Rehabiliation Orders Rehab Potential: Good Rehab Orders: ROM Exercises, Evaluation for Physical Therapy, Evaluation for Occupational Therapy - Treatments Skin tear care topically daily PRN per policy, May check for fecal impaction rectally daily PRN, Fleet enema rectally every other day PRN cleansing purposes List/Other: Opsite dressing, leave intact until first post-operative visit. If dressing becomes >50% saturated, contact office, remove dressing and place appropriate dressing in its place. Do not allow for dressing to get wet. Zipline/[place] in place, plan to remove at post-operative day #14-16. Total Joint Precautions x 6 weeks Apply cold therapy wrap 3-6x/day for 20 minutes at a time. Encourage ambulation throughout the day Use Incentive spirometer 10x/hour. Elevate affected extremity above heart as tolerated. Brace: Wear hip abductor brace at night x 6 weeks. - Diet Orders Cardiac CERTIFICATION: I certify that the transfer of the above named patient to an Extended Care Facility is necessary for the continuing treatment of the diagnosis listed. The above information is true and accurate reflection of patient's current condition. Confidential - Redisclosure prohibited without a patient's written consent.
[2018-03-16] MEDS ORDERED: Ibuprofen 600 MG TABLET PO ONE (13:19)
[2018-03-16] MEDS ORDERED: Warfarin perPT PO SCH (14:00)
[2018-03-16] MEDS: *HR* Warfarin 2.5 MG TABLET PO SCH (17:16)
[2018-03-16] MEDS: *HR* OxyCODONE Immed Rel 5 MG TABLET PO PRN (21:30)
[2018-03-17] MEDS: *HR* OxyCODONE Immed Rel 5 MG TABLET PO PRN ×2 (04:11→17:32)
[2018-03-17] MEDS: *HR* Enoxaparin 30 MG/0.3 ML SYRINGE SQ SCH ×2 (05:19→17:33)
[2018-03-17 07:02] LABS: Hematocrit 32.6 % (37.5-50.1); Hemoglobin 11.2 g/dL (12.9-16.9)
[2018-03-17 07:10] LABS: INR 1.3; Prothrombin Time 14.5 Seconds (9.4-12.1)
[2018-03-17 07:13] LABS: BUN/Creatinine Ratio 19 (6-26); Blood Urea Nitrogen 13 mg/dL (8-23); Calcium 8.5 mg/dL (8.6-10.3); Carbon Dioxide 29 mEq/L (23-29); Chloride 105 mEq/L (98-107); Glucose 102 mg/dL (70-105); Osmolality,Calculated 286 (280-300); Potassium 4.1 mEq/L (3.5-5.1); Sodium 138 mEq/L (136-145); eGFR For Non-African Americans > 60 (> 60)
--- NOTE | 2018-03-17 08:05 | Orthopedics Progress Note ---
Date of Encounter: 03/17/18 Time of Encounter: 08:04 Subjective Interval history: Patient was seen this morning doing well without complaints. Afebrile vital signs stable. Operative extremity: Neurovascularly intact Dressing clean dry and intact Calves nontender Assessment and plan: Continue with postoperative care A. fib overnight, asymptomatic cardiology already on board Objective Vital signs: Vital Signs Temp Pulse Resp BP Pulse Ox 03/17/18 06:54 97.9 F 94 16 104/58 95 03/17/18 03:57 97.7 F 90 15 101/60 95 03/17/18 00:15 90/60 03/16/18 22:44 98.3 F 90 15 86/60 94 03/16/18 21:38 105 100/64 03/16/18 20:20 16 94 03/16/18 19:00 97.9 F 88 15 130/70 94 03/16/18 16:03 97.9 F 85 16 101/57 96 03/16/18 09:55 98.1 F 83 16 107/64 96 Intake and Output 03/16/18 03/17/18 03/17/18 23:59 07:59 15:59 Intake Total 200 / 200 Output Total 725 / 725 750 / 750 Balance -525 / -525 -750 / -750 Intake: Oral 200 / 200 Output: Urine 725 / 725 750 / 750 Other: # Voids 1 Weight 57.4 kg Patient Weight 03/17/18 23:59 Weight 57.4 kg - Labs CBC & BMP: 03/17/18 06:05 03/17/18 06:05 Labs: Abnormal lab results Hgb 11.2 g/dL (12.9-16.9) L 03/17/18 06:05 Hct 32.6 % (37.5-50.1) L 03/17/18 06:05 PT 14.5 Seconds (9.4-12.1) H 03/17/18 06:05 Calcium 8.5 mg/dL (8.6-10.3) L 03/17/18 06:05 Consult Discharge Plan - Plan Referrals: Caroline Klein, LITHOGRAPHIC STRIPPER [Primary Care Provider] -
[2018-03-17] MEDS: Metoprolol XL (24 HR) Succ 50 MG TAB.ER.24H PO SCH (08:26)
[2018-03-17] MEDS: Furosemide 40 MG TABLET PO SCH (08:26)
[2018-03-17] MEDS: Multivit/Ca/Min/Fe/FA 1 TAB TABLET PO SCH (08:26)
[2018-03-17] MEDS: Ascorbic Acid 500 MG TABLET PO SCH ×2 (08:26→17:33)
[2018-03-17] MEDS: *HR* OxyCODONE/APAP 5/325 TABLET PO PRN (08:36)
[2018-03-17] MEDS: TIOTROPIUM BROMIDE IH SCH (11:33)
[2018-03-17] MEDS: Budesonide/Formoterol 160/4.5 1 PUFF INH IH SCH ×2 (11:33→19:45)
--- NOTE | 2018-03-17 13:29 | Event Note ---
Date of Encounter: 03/17/18 Time of Encounter: 13:28 PCR - POD#2 - Left THR 03/16. Patient seen at bedside, without complaints. A&O x 3 03/16 - Cardio consulted for close follow up. No further recommendation. Afebrile, vital signs stable. Labs reviewed. H/H - stable, asymptomatic Pain control: adequate Participating in PT. All questions and concerns addressed. Educated on use of incentive spirometer. Encouraged ambulation and proper hydration. Patient educated on post-operative restrictions and post-operative care. Assessment and plan: Continue with postoperative care Discharge plan: ECF, on . OK to start Coumadin* Short CBC 03/17/18 Range/Units 06:05 Hgb 11.2 L (12.9-16.9) g/dL Hct 32.6 L (37.5-50.1) % BMP 03/17/18 Range/Units 06:05 Sodium 138 (136-145) mEq/L Potassium 4.1 (3.5-5.1) mEq/L Chloride 105 (98-107) mEq/L Carbon Dioxide 29 (23-29) mEq/L BUN 13 (8-23) mg/dL Creatinine 0.70 (0.70-1.30) mg/dL Glucose 102 (70-105) mg/dL Calcium 8.5 L (8.6-10.3) mg/dL Vital Signs Temp Pulse Resp BP Pulse Ox 03/17/18 11:36 16 95 03/17/18 11:00 93 109/69 03/17/18 10:08 97.8 F 97 16 107/68 96 03/17/18 06:54 97.9 F 94 16 104/58 95 03/17/18 03:57 97.7 F 90 15 101/60 95 03/17/18 00:15 90/60 03/16/18 22:44 98.3 F 90 15 86/60 94 03/16/18 21:38 105 100/64 03/16/18 20:20 16 94 03/16/18 19:00 97.9 F 88 15 130/70 94 03/16/18 16:03 97.9 F 85 16 101/57 96 Intake and Output 03/16/18 03/17/18 03/17/18 23:59 07:59 15:59 Intake Total 200 / 200 584 / 584 Output Total 725 / 725 750 / 750 300 / 300 Balance -525 / -525 -750 / -750 284 / 284 Intake: IV Fluids 104 / 104 Magnesium Sulfate 2 GM In 0.9 % 104 / 104 Sodium Chloride 100 ML @ 104 mls/hr IVPB ONCE ONE Rx#: [id number] Oral 200 / 200 480 / 480 Output: Urine 725 / 725 750 / 750 300 / 300 Other: # Voids 1 Weight 57.4 kg Patient Weight 03/17/18 23:59 Weight 57.4 kg
--- NOTE | 2018-03-17 15:04 | Cardiology Progress Note ---
Date of Encounter: 03/17/18 Time of Encounter: 12:00 Assessment and Plan (1) NSVT (nonsustained ventricular tachycardia) Current Visit: Yes Status: Acute 14 beat Slow Vt seen 03/15/18, HR 90. Pt has ICD for NICMP EF 45-50%. Reports h/o prior ICD shocks. TTE this admit shows EF unchanged from previous. Mg replacement given. Keep Mg 2.0 and potassium 4.0. No recurrent NSVT seen only couplets and PVC. No further testing from cardiology standpoint in-pt. Can consider out-pt stress test. Reports uneventful LHC 5 years ago at OSH. Cardiology will sign off and out-pt f/u will be scheduled. (2) Atrial fibrillation Current Visit: No Status: Chronic H/o PAF. Currently NSR. Small runs PAF seen at times on telemetry at times. Overall he is rate controlled. Continue bb. On coumadin therapy and currently bridged by coumadin clinic. Pharmacy restarting coumadin therapy. Goal INR 2.0-3.0. Qualifiers: Atrial fibrillation type: chronic Qualified Code(s): I48.2 - Chronic atrial fibrillation (3) NICM (nonischemic cardiomyopathy) Current Visit: No Status: Chronic H/o NICM s/p ICD. States LHC at OSH 5 years was normal. TTE 2017 showed EF LVEF 45-50%. TTE this admit is unchanged. He is currently euvolemic. Continue bb. Continue maintenance lasix. Low sodium diet. (4) ICD (implantable cardioverter-defibrillator) in place Current Visit: No Status: Chronic Discussion w patient/family: The assessment and plan as outlined above was discussed with the patient and/or family members who expressed understanding and agreement. All questions were answered. Thank you for involving us in the care of your patient. Please call with any questions. Subjective Principal diagnosis: S/p hip replacement, NSVT Interval history: Mr. Tenorio has no new complaints. C/o occasional palpitations. Noted to have PAC and occasional PAF on telemetry. No recurrent NVST. Reviewed with patient. Objective Vital Signs, Last 4 Hours Resp Pulse Ox 03/17/18 11:36 16 95 General: Conversant, No Apparent Distress, Other (chachetic) HEENT: Atraumatic, Normocephaly, Mucus Membranes Moist Neck: No JVD, Normal carotid pulses Cardiac: Reg Rate and Rhythm, Normal S1 and S2, No Murmur, Other (irregular, SR with PAC) Lungs: Normal Breath Sounds, No Wheeze, Rales, Rhonchi Neuro: Alert and responsive, No focal deficits noted Abdomen: Soft, Non-Tender Skin: No rashes noted on visualized skin Musculoskeletal: No Chest Wall Tenderness Extremities: No Clubbing, No Cyanosis, No Edema, Normal Pulses Results 03/17/18 06:05 03/17/18 06:05 Lab Results 03/16/18 03/17/18 03/17/18 15:38 06:05 06:05 Hgb 11.2 L Hct 32.6 L INR 1.3 Sodium Potassium Chloride Carbon Dioxide BUN Creatinine Glucose Calcium Magnesium 1.7 03/17/18 06:05 Hgb Hct INR Sodium 138 Potassium 4.1 Chloride 105 Carbon Dioxide 29 BUN 13 Creatinine 0.70 Glucose 102 Calcium 8.5 L Magnesium - Imaging and Cardiology Echo: pending, report reviewed - EKG Interpretation EKG results cardiology: personally reviewed Consult Discharge Plan - Plan Referrals: Caroline Klein, TAXI CAB DRIVER [Primary Care Provider] -
--- NOTE | 2018-03-17 15:38 | Electrocardiograph Report ---
[place] [address] Test Date: 2018-03-15 Pat Name: Juan Boo Department: 114 Room: [facility] Gender: M Casino Surveillance Officer: : 1955 Requested By: Dolores Sawant Order Number: [id number] Reading MD: Elena Wright Measurements Intervals [place] Rate: 66 P: [place]: 0 QRS: 81 QRSD: 95 T: 32 QT: 383 QTc: 397 Interpretive Statements ATRIAL FIBRILLATION ABNORMAL RHYTHM ECG Electronically Signed On 03-17-2018 15:37:18 EST by Elena Wright
[2018-03-17] MEDS: *HR* Warfarin 2.5 MG TABLET PO SCH (17:33)
[2018-03-18 05:05] LABS: INR 1.2; Prothrombin Time 13.1 Seconds (9.4-12.1)
[2018-03-18] MEDS: *HR* Enoxaparin 30 MG/0.3 ML SYRINGE SQ SCH (06:05)
[2018-03-18] MEDS: *HR* OxyCODONE/APAP 5/325 TABLET PO PRN (06:13)
[2018-03-18 07:31] LABS: Hematocrit 35.1 % (37.5-50.1)
[2018-03-18] MEDS: TIOTROPIUM BROMIDE IH SCH (07:53)
[2018-03-18] MEDS: Budesonide/Formoterol 160/4.5 1 PUFF INH IH SCH (07:54)
--- NOTE | 2018-03-18 08:24 | Orthopedics Progress Note ---
Date of Encounter: 03/18/18 Time of Encounter: 08:23 Subjective Principal diagnosis: S/p hip replacement, NSVT Interval history: Patient was seen this morning doing well without complaints. Afebrile vital signs stable. Operative extremity: Neurovascularly intact Dressing clean dry and intact Calves nontender Assessment and plan: Continue with postoperative care Plan for discharge today Objective Vital signs: Vital Signs Temp Pulse Resp BP Pulse Ox 03/18/18 06:29 98.5 F 84 16 98/67 93 03/18/18 04:14 98.6 F 91 14 93/64 92 03/17/18 23:37 98.8 F 56 15 104/67 92 03/17/18 19:47 16 92 03/17/18 19:06 99.5 F 100 14 100/66 92 03/17/18 15:49 98.6 F 99 16 102/64 96 03/17/18 11:36 16 95 03/17/18 11:00 93 109/69 03/17/18 10:08 97.8 F 97 16 107/68 96 Intake and Output 03/17/18 03/18/18 03/18/18 23:59 07:59 15:59 Output Total 850 / 850 275 / 275 Balance -850 / -850 -275 / -275 Output: Urine 850 / 850 275 / 275 Other: Percent of Meal Consumed 0% Weight 58.5 kg Patient Weight 03/18/18 23:59 Weight 58.5 kg - Labs CBC & BMP: 03/18/18 07:09 03/17/18 06:05 Labs: Abnormal lab results Hgb 12.0 g/dL (12.9-16.9) L 03/18/18 07:09 Hct 35.1 % (37.5-50.1) L 03/18/18 07:09 PT 13.1 Seconds (9.4-12.1) H 03/18/18 04:22 Calcium 8.5 mg/dL (8.6-10.3) L 03/17/18 06:05 Consult Discharge Plan - Plan Referrals: Caroline Klein, HEAT ENGINEERING TEACHER [Primary Care Provider] -
[2018-03-18 09:10] LABS: BUN/Creatinine Ratio 20 (6-26); Blood Urea Nitrogen 11 mg/dL (8-23); Calcium 8.4 mg/dL (8.6-10.3); Carbon Dioxide 26 mEq/L (23-29); Chloride 100 mEq/L (98-107); Glucose 92 mg/dL (70-105); Osmolality,Calculated 275 (280-300); Potassium 3.9 mEq/L (3.5-5.1); Sodium 133 mEq/L (136-145); eGFR For Non-African Americans > 60 (> 60)
[2018-03-18] MEDS: Ascorbic Acid 500 MG TABLET PO SCH (10:11)
[2018-03-18] MEDS: Multivit/Ca/Min/Fe/FA 1 TAB TABLET PO SCH (10:12)
[2018-03-18] MEDS: Furosemide 40 MG TABLET PO SCH (10:57)
[2018-03-18] MEDS: Metoprolol XL (24 HR) Succ 50 MG TAB.ER.24H PO SCH (10:57)
[2018-03-18 11:47] VITALS: BP 104/56
[2018-03-18] MEDS ORDERED: *HR* Warfarin 4 MG TABLET PO ONE (18:00)
== END 2018-03-18 16:32 | DRG 470 ==
LOC: SAMDAY 10:44 → 3NENU 17:44
PROVIDERS: ADMIT Orthopaedic Surgery; ATTEND Orthopaedic Surgery